=== PATIENT | female | born 1980 | race Hispanic/Latino ===

== ENCOUNTER 2018-03-28 07:50 | Emergency (ER) | payer BC, SELFPAY ==
--- NOTE | 2018-03-28 11:12 | RAD REPORT ---
EXAM DESCRIPTION: RAD - Chest Pa And Lat (2 Views) - 03/28/2018 10:32 am CLINICAL HISTORY: Cough, shortness of breath, difficulty swallowing COMPARISON: None. TECHNIQUE: PA and lateral views of the chest were obtained. FINDINGS: The lungs are clear. Heart size is normal and central vasculature is within normal limit s. No pleural effusion or pneumothorax seen. No acute bony finding noted. No aortic abnormality. IMPRESSION: No acute cardiopulmonary process.
--- NOTE | 2018-03-28 11:15 | RAD REPORT ---
EXAM DESCRIPTION: RAD - Neck Soft Tissue - 03/28/2018 10:32 am CLINICAL HISTORY: Cough, choking, difficulty swallowing COMPARISON: None. TECHNIQUE: AP and lateral views of the neck were obtained. FINDINGS: No prevertebral soft tissue thickening. No foreign body or abnormal air density. Epiglot tis is normal. Tonsillar and adenoid tissue within normal limits as well. There is straightening of the usual cervical lordosis. C5-6 disc space narrowing with endplate spurring present. No facet join t abnormality. IMPRESSION: C5-6 disc and endplate degenerative change. No suspicious soft tissue finding.
[2018-03-28 12:16] LABS: BUN Blood Urea Nitrogen 11 mg/dL (7-18); Bicarbonate 25 mmol/L (21-32); Creatine Phosphokinase 63 U/L (26-192); Glucose Level 89 mg/dL (74-106); Potassium 3.9 mmol/L (3.5-5.1); Sodium Level 141 mmol/L (136-145); Troponin I < 0.02 ng/mL (0.0-0.045)
[2018-03-28 12:33] LABS: Absolute Lymphocytes (CBC) 1.1 K/uL (0.7-4.9); Absolute Monocytes 0.4 K/uL (0.1-1.3); Absolute Neutrophil 6.2 K/uL (1.8-8.0); Basophils % 0.3 % (0-1.3); Eosinophils % 1.8 % (0-4.4); Hematocrit 36.6 % (36.0-45.0); Lymphocytes % 14.4 % (15.3-44.8); MCH 30.7 pg (27.0-35.0); MCV 90.2 fL (80-100); MPV 11.4 fL (7.6-11.3); Monocytes % 5.2 % (3.3-12.3); RBC Red Blood Cell Count 4.06 M/uL (3.86-4.86)
[2018-03-28 12:59] LABS: Urine Blood NEGATIVE (NEG); Urine Glucose NEGATIVE (NEG); Urine Protein NEGATIVE (NEG)
--- NOTE | 2018-03-29 00:59 | EDPHYS ---
Physician Documentation [facility] Name: Nicole Segura Age: 37 yrs Sex: Female : 1980 Arrival Date: 03/28/2018 Time: 09:18 Bed 7 Private MD: ED Physician John Vang RESIDENT DIRECTOR: 03/28 09:29 LMP 03/08/2018 ch Historical: - Allergies: 09:29 No Known Allergies; ch - Home Meds: : None [Active]; ch - PMHx: : None; ch - PSHx: :29 Tubal ligation; ch - Immunization history:: Adult Immunizations up to date, Pneumococcal vaccine is not up to date, Flu vaccine is not up to date. - Social history:: Smoking status: Patient/guardian denies using tobacco, Patient/guardian denies using alcohol, street drugs. - Ebola Screening: : Patient negative for fever greater than or equal to 101.5 degrees Fahrenheit, and additional compatible Ebola Virus Disease symptoms Patient denies exposure to infectious person Patient denies travel to an Ebola-affected area in the 21 days before illness onset No symptoms or risks identified at this time. Vital Signs: 09:29 BP 103 / 76; Pulse 70; Resp 16; Temp 98.3; Pulse Ox 99% on R/A; Pain 0/10; ch 11:57 BP 98 / 65; Pulse 68; Resp 18; Temp 98.3; Pulse Ox 99% on R/A; Pain 0/10; ch MDM: 09:20 Patient medically screened. cp Administered Medications: No medications were administered Disposition: 03/28/18 11:57 Discharged to Home. Impression: Dysphagia, unspecified - Resolved. - Condition is Stable. - Discharge Instructions: Dysphagia. - Medication Reconciliation Form, Thank You Letter, Antibiotic Education, Prescription Opioid Use, Work release form form. - Follow up: Ginna Kamara MD; When: 1 - 2 days; Reason: Recheck today's complaints. - Problem is new. - Symptoms are resolved. Signatures: Khalida Verdugo RN RN ch John Vasquez PA PA cp Corrections: (The following items were deleted from the chart) 12:08 11:57 03/28/2018 11:57 Discharged to Home. Impression: Dysphagia, unspecified - ch Resolved. Condition is Stable. Forms are Medication Reconciliation Form, Thank You Letter, Antibiotic Education, Prescription Opioid Use. Follow up: Ginna Kamara; When: 1 - 2 days; Reason: Recheck today's complaints. Problem is new. Symptoms are resolved. cp
--- NOTE | 2018-03-29 00:59 | ER ---
Nurse's Notes [facility] Name: Nicole Segura Age: 37 yrs Sex: Female : 1980 Arrival Date: 03/28/2018 Time: 09:18 Bed 7 Private MD: Diagnosis: Dysphagia, unspecified-Resolved Presentation: 03/28 09:26 Presenting complaint: Patient states: Mcdonough like I was choking, couldn't move air in or ch out, happened twice this morning so I called EMS. I felt like there was mucous stuck in my throat. happened at 0730, and then again at 0740. Drinking water helps. See Down time charting for triage info, beginning computer charting now. Transition of care: patient was not received from another setting of care. Onset of symptoms was March 28, 2018 at 07:00. Risk Assessment: Do you want to hurt yourself or someone else? Patient reports no desire to harm self or others. Initial Sepsis Screen: Does the patient meet any 2 criteria? No. Patient's initial sepsis screen is negative. Does the patient have a suspected source of infection? No. Patient's initial sepsis screen is negative. Care prior to arrival: IV initiated. 20 GA, in the right antecubital area, Glucose check: 86. 09:26 Method Of Arrival: EMS: [facility] 09:26 Acuity: ZE 3 ch Triage Assessment: :29 General: Appears in no apparent distress. comfortable, Behavior is calm, cooperative, ch appropriate for age. Pain: Denies pain. Neuro: No deficits noted. Cardiovascular: No deficits noted. Respiratory: No deficits noted. Respiratory: Airway is patent Respiratory effort is even, unlabored. 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 - Social history:: Smoking status: Patient/guardian denies using tobacco, Patient/guardian denies using alcohol, street drugs. - Ebola Screening: : Patient negative for fever greater than or equal to 101.5 degrees Fahrenheit, and additional compatible Ebola Virus Disease symptoms Patient denies exposure to infectious person Patient denies travel to an Ebola-affected area in the 21 days before illness onset No symptoms or risks identified at this time. Screenin:57 Abuse screen: Denies threats or abuse. Denies injuries from another. Nutritional screening: No deficits noted. Tuberculosis screening: No symptoms or risk factors identified. Fall Risk None identified. Assessment: 11:00 Reassessment: Patient appears in no apparent distress at this time. No changes from previously documented assessment. Patient and/or family updated on plan of care and expected duration. Pain level reassessed. Patient is alert, oriented x 3, equal unlabored respirations, skin warm/dry/pink. 11:57 Reassessment: Patient appears in no apparent distress at this time. Patient and/or family updated on plan of care and expected duration. Pain level reassessed. Patient is alert, oriented x 3, equal unlabored respirations, skin warm/dry/pink. Patient denies pain at this time. Patient states feeling better. Patient states symptoms have improved. Vital Signs: 09:29 BP 103 / 76; Pulse 70; Resp 16; Temp 98.3; Pulse Ox 99% on R/A; Pain 0/10; ch 11:57 BP 98 / 65; Pulse 68; Resp 18; Temp 98.3; Pulse Ox 99% on R/A; Pain 0/10; ch ED Course: 09:15 Urine collected: clean catch specimen, clear, kasia colored. jb1 09:18 Patient arrived in ED. ch 09:20 John Vasquze PA is PHCP. cp 09:20 John Vang MD is Attending Physician. cp 09:26 Khalida Verdugo, REYNA is Primary Nurse. ch 09:28 Triage completed. ch 09:29 Arm band placed on left wrist. Patient placed in an exam room, on a stretcher, on manager cardiac, on pulse oximetry. 10:06 EKG done, by oscillograph technician. reviewed by John Vang MD. at1 11:55 Ginna Kamara MD is Referral Physician. cp 11:57 No apparent distress. Resting quietly. ch 11:57 Patient has correct armband on for positive identification. Placed in gown. Bed in low position. Call light in reach. Side rails up X 1. Adult w/ patient. oil pit attendant on. Pulse ox on. NIBP on. 11:57 No provider procedures requiring assistance completed. IV discontinued, intact, ch bleeding controlled, No redness/swelling at site. Pressure dressing applied. Administered Medications: No medications were administered Outcome: :57 Discharge ordered by MD. cp 11:57 Discharged to home ambulatory, with family. 11:57 Condition: stable 11:57 Discharge instructions given to patient, family, Instructed on discharge instructions, follow up and referral plans. medication usage, Demonstrated understanding of instructions, follow-up care. 12:08 Patient left the ED. Signatures: Wali Bynum jb1 Khalida Verdugo RN RN Nallely Gusman, wicker worker EKG Tat1 John Vasquez PA PA cp Corrections: (The following items were deleted from the chart) 09:46 09:46 Urine collected: clean catch specimen, clear, kasia colored, jb1 jb1
--- NOTE | 2018-03-29 12:14 | EKG ---
Test Date: 2018-03-28 Test Time: 09:01:26 Pipe Bender: HINA MEASUREMENT RESULTS: Intervals: Rate: 60 CT: 150 QRSD: 80 QT: 398 QTc: 398 [place]: P: 58 CT: 150 QRS: 42 T: 53 INTERPRETIVE STATEMENTS: Normal sinus rhythm Normal ECG No previous ECG available for comparison Electronically Signed On 03-29-18 12:08:06 CDT by Gonzalez Parmar
== END 2018-03-28 12:08 | disposition home or self-care (01) ==
LOC: ER 07:50
DX: R13.10 Dysphagia, unspecified (principal)
CPT/HCPCS: 36415; 70360; 71046; 80048; 81003; 81025; 82550; 83735; 84484; 85025; 87070; 87081; 93005; 99284

== ENCOUNTER 2025-05-12 02:31 | Emergency (ER) | payer BC, OTHER ==
[2025-05-12] MEDS ORDERED: MORPHINE 2 MG/ML SYR ONE (03:14)
[2025-05-12] MEDS ORDERED: NA CHLORIDE 0.9% 1,000 ML ONE (03:14)
[2025-05-12] MEDS ORDERED: ONDANSETRON 4 MG/2 ML VIAL ONE (03:14)
[2025-05-12 03:43] LABS: ALT/SGPT 16.0 U/L (13-56); AST/SGOT 12.0 U/L (15-37); Albumin 3.3 g/dL (3.4-5.0); Albumin/Globulin Ratio 0.9 (1.1-1.8); Alkaline Phosphatase 76.0 U/L (45-117); Anion Gap 8.6 mEq/L (5.0-15.0); BUN Blood Urea Nitrogen 8.0 mg/dL (7-18); Globulin 3.7 g/dL (2.3-3.5); Glucose Level 94.0 mg/dL (74-106); Lipase 25.0 U/L (13-75); Potassium 3.6 mEq/L (3.5-5.1)
[2025-05-12 03:51] LABS: Urine Microscopic Reflex YN NO UMIC
[2025-05-12 03:52] LABS: Absolute Lymphocytes (CBC) 1.9 K/uL (0.7-4.9); Hematocrit 37.1 % (36.0-45.0); Hemoglobin 12.2 g/dL (12.0-15.0); MCH 28.7 pg (27.0-35.0); MCHC 32.8 g/dL (32.0-36.0); MCV 87.3 fL (80-100); MPV 10.6 fL (7.6-11.3); Nucleated RBC Absolute Count 0.0 (0-0); Nucleated Red Blood Cells % 0.0 % (0-0); RBC Red Blood Cell Count 4.25 M/uL (3.86-4.86); White Blood Count 7.30 thou/uL (4.3-10.9)
[2025-05-12] MEDS ORDERED: KETOROLAC 30 MG/ML INJ ONE (03:58)
--- NOTE | 2025-05-12 06:07 | RAD REPORT ---
EXAM: CT Abdomen and Pelvis With Intravenous Contrast CLINICAL HISTORY: The patient is 44 years old and is Female; Abdominal pain. TECHNIQUE: Axial computed tomography images of the abdomen and pelvis with intravenous contrast. Sagittal and coronal reformatted images were created and reviewed. This CT exam was performed using one or more of the following dose reduction techniques: automated exposure control, adjustmen t of the mA and/or kV according to patient size, and/or use of iterative reconstruction technique. COMPARISON: No relevant prior studies available. FINDINGS: Lung bases: Unremarkable. No mass. No consolidation. Pleural space: Minimal right pleural fluid. ABDOMEN: Liver: Fatty liver. Gallbladder and bile ducts: Unremarkable. No calcified stones. No ductal dilation. Pancreas: No findings to suggest acute pancreatitis. No mass visualized. No ductal dilation. Spleen: Unremarkable. No splenomegaly. Adrenals: Unremarkable. No mass. Kidneys and ureters: Punctate right nephrolithiasis. The kidneys are otherwise unremarkable. No hydronephrosis. Stomach and bowel: No bowel dilatation or obstruction. No bowel wall thickening. PELVIS: Appendix: The visualized appendix is normal. No pericecal inflammation to suggest acute appendici tis. Bladder: Bladder is not well distended. Reproductive: Uterine cervix appears enlarged and heterogeneous with underlying nabothian cysts. An underlying cervical mass cannot be excluded, although this may be a volume averaging artifact. 4.2 cm left ovarian cyst. Small left ovarian follicles. Right ovary is unremarkable. ABDOMEN and PELVIS: Intraperitoneal space: Unremarkable. No free air. No significant fluid collection. Bones/joints: No acute fracture. No dislocation. Soft tissues: Incompletely visualized bilateral breast implants. Vasculature: Unremarkable. No abdominal aortic aneurysm. Lymph nodes: No pathologically enlarged lymph nodes. IMPRESSION: 1. Uterine cervix appears enlarged and heterogeneous with underlying nabothian cysts. An underlying cervical mass cannot be excluded, although this may be a volume averaging artifact. Pelvic ultrasound and SECURITY ASSISTANT follow-up recommended. 2. Left ovarian simple-appearing cyst measuring 4.2 cm. No follow-up imaging is recommended. Refere nce: JACR 2019;17(2):248-254 3. Normal appendix. 4. Mild fatty liver. 5. Incompletely visualized bilateral breast implants. 6. Additional non-emergent findings as above. Electronically signed by: Ginna Hernandez MD 05/12/2025 04:56 AM CDT RP V2 Due to temporary technical issues with the PACS/Mobile Card reporting system, reports are being petrona d by the in-house radiologist without review as a courtesy to ensure prompt reporting the interpreting radiologist is fully responsible for the content of the report. Transcribed Date/Time: 05/12/2025 6:06 AM
--- NOTE | 2025-05-12 06:16 | EDPHYS ---
Physician Documentation [facility] Name: Nicole Segura Age: 44 yrs Sex: Female : 1980 Arrival Date: 05/12/2025 Time: 02:31 Bed 16 Private MD: ED Physician Grant Tran HPI: 05/12 03:09 This 44 yrs old Female presents to ER via Ambulatory with complaints of Neck sp4 and Upper Back Pain, Flank Pain. 23:45 44-year-old female presents with acute onset of neck pain upper back pain and flank sp4 pain. Patient reports pain is mostly situated in the right upper abdominal area with radiation into the upper back and flank. No history of prior abdominal surgery. Historical: - Allergies: :57 No Known Allergies; km10 - Home Meds: 02:57 Adderall XR Oral [Active]; km10 - PMHx: 02:57 ADHD; km10 - Immunization history:: Adult Immunizations up to date. - Infectious Disease History:: Denies. - Social history:: Smoking status: Patient denies any tobacco usage or history of. - Family history:: not pertinent. ROS: 23:45 Constitutional: Negative for fever, chills, and weight loss, positive for right upper sp4 quadrant abdominal pain and upper back pain also right flank pain 23:45 All other systems are negative, Exam: 23:45 Constitutional: This is a well developed, well nourished patient who is awake, alert, sp4 and in no acute distress. Head/Face: Normocephalic, atraumatic. Eyes: Pupils equal round and reactive to light, extra-ocular motions intact. Lids and lashes normal. Conjunctiva and sclera are not injected. Cornea within normal limits. Periorbital areas with no swelling, redness, or edema. ENT: Nares patent. No nasal discharge, no septal abnormalities noted. Tympanic membranes are normal and external auditory canals are clear. Oropharynx with no redness, swelling, or masses, exudates, or evidence of obstruction, uvula midline. Mucous membranes moist. Neck: Trachea midline, no thyromegaly or masses palpated, and no cervical lymphadenopathy. Supple, full range of motion without nuchal rigidity, or vertebral point tenderness. Chest/axilla: Normal chest wall appearance and motion. Nontender with no deformity. No lesions are appreciated. Cardiovascular: Regular rate and rhythm with a normal S1 and S2. No gallops, murmurs, or rubs. No pulse deficits. Respiratory: Lungs have equal breath sounds bilaterally, clear to auscultation and percussion. No rales, rhonchi or wheezes noted. No increased work of breathing, no retractions or nasal flaring. Abdomen/GI: Soft, with normal bowel sounds. No distension or tympany. No guarding or rebound. No evidence of tenderness throughout. Back: No spinal tenderness. No costovertebral tenderness. Skin: Warm, dry with normal turgor. Normal color with no rashes, no lesions, and no evidence of cellulitis. MS/ Extremity: Pulses equal, no cyanosis. Neurovascular intact. Full, normal range of motion. Neuro: Awake and alert, GCS 15, oriented to person, place, time, and situation. Cranial nerves II-XII grossly intact. Motor strength 5/5 in all extremities. Sensory grossly intact. Psych: Awake, alert, with orientation to person, place and time. Behavior, mood, and affect are within normal limits Vital Signs: 02:55 BP 126 / 84; Pulse 84; Resp 16; Temp 98.4(O); Pulse Ox 100% on R/A; Weight 63.5 kg (R); km10 Height 5 ft. 1 in. (R); 05:43 BP 121 / 79; Pulse 68; Resp 14; Pulse Ox 98% on R/A; km10 02:55 Body Mass Index 26.45 (63.50 kg, 154.94 cm) km10 Finley Coma Score: 05:43 Eye Response: spontaneous(4). Verbal Response: oriented(5). Motor Response: obeys km10 commands(6). Total: 15. 23:45 Eye Response: spontaneous(4). Verbal Response: oriented(5). Motor Response: obeys sp4 commands(6). Total: 15. MDM: 02:45 Medical Screening Exam initiated sp4 06:22 ED course: FINDINGS: Lung bases: Unremarkable. No mass. No consolidation. Pleural sp4 space: Minimal right pleural fluid. ABDOMEN: Liver: Fatty liver. Gallbladder and bile ducts: Unremarkable. No calcified stones. No ductal dilation. Pancreas: No findings to suggest acute pancreatitis. No mass visualized. No ductal dilation. Spleen: Unremarkable. No splenomegaly. Adrenals: Unremarkable. No mass. Kidneys and ureters: Punctate right nephrolithiasis. The kidneys are otherwise unremarkable. No hydronephrosis. Stomach and bowel: No bowel dilatation or obstruction. No bowel wall thickening. PELVIS: Appendix: The visualized appendix is normal. No pericecal inflammation to suggest acute appendicitis. Bladder: Bladder is not well distended. RADIOLOGY SERVICES REPORT (Continued) Name: NICOLE SEGURAILLO CC: NICOLE SEGURA / Report: [id number] Radiology Services Report Page 2 of 2 Reproductive: Uterine cervix appears enlarged and heterogeneous with underlying nabothian cysts. An underlying cervical mass cannot be excluded, although this may be a volume averaging artifact. 4.2 cm left ovarian cyst. Small left ovarian follicles. Right ovary is unremarkable. ABDOMEN and PELVIS: Intraperitoneal space: Unremarkable. No free air. No significant fluid collection. Bones/joints: No acute fracture. No dislocation. Soft tissues: Incompletely visualized bilateral breast implants. Vasculature: Unremarkable. No abdominal aortic aneurysm. Lymph nodes: No pathologically enlarged lymph nodes. IMPRESSION: 1. Uterine cervix appears enlarged and heterogeneous with underlying nabothian cysts. An underlying cervical mass cannot be excluded, although this may be a volume averaging artifact. Pelvic ultrasound and BURGLAR ALARM INSTALLER follow-up recommended. 2. Left ovarian simple-appearing cyst measuring 4.2 cm. No follow-up imaging is recommended. 3. Normal appendix. 4. Mild fatty liver. 5. Incompletely visualized bilateral breast implants. 6. Additional non-emergent findings as above. Electronically signed by: Ginna Hernandez MD . 23:47 Differential diagnosis: arthritis, Degenerative Disc Disease Acute gallbladder sp4 infection, biliary colic. Pancreatitis, hepatitis. Data reviewed: vital signs, nurses notes, lab test result(s), radiologic studies, CT scan. Consideration of Admission/Observation Escalation of care including admission/observation considered. ED course: Incidental finding on a CAT scan made of cervical enlargement and heterogenous appearance with underlying cysts. Patient advised that there may be underlying cervical mass. Patient advised to visit her RETAIL DEPARTMENT RESET in 2 to 4 weeks for pelvic examination and cervical biopsy. Otherwise stable for discharge home.. 05/12 02:47 Order name: UA Rfx Sheng Cult if indicated; Complete Time: 06:02 sp4 05/12 02:47 Order name: Test, Urine; Complete Time: 06:02 sp4 10/29 02:47 Order name: CBC with Diff; Complete Time: 06:02 sp4 05/12 02:47 Order name: CMP; Complete Time: 06:02 sp4 05/12 02:47 Order name: Lipase; Complete Time: 06:02 sp4 05/12 02:54 Order name: CT Abd/Pelvis - IV Contrast Only sp4 05/12 02:47 Order name: IV Saline Lock; Complete Time: 03:10 sp4 05/12 02:47 Order name: Labs collected and sent; Complete Time: 03:10 sp4 Administered Medications: 03:34 Drug: Ondansetron IVP 4 mg IVP once; over 2 minutes Route: IVP; Site: left antecubital; km10 04:24 Follow up: Response: No adverse reaction 10 03:34 Drug: morphine IVP or IV 2 mg IVP once over 4 mins Route: IVP; Infused Over: 4 mins; km10 Site: left antecubital; 04:24 Follow up: Response: No adverse reaction [facility] 03:34 Drug: NS 0.9% IV 1000 ml IV at 1 bolus Per protocol; to be given as a bolus over 60 km10 minutes Route: IV; Rate: 1 bolus; Site: left antecubital; 04:56 Follow up: Response: No adverse reaction; IV Status: Completed infusion 10 04:23 Drug: Ketorolac IVP 30 mg IVP once Route: IVP; Site: left antecubital; km10 04:56 Follow up: Response: No adverse reaction [facility] Disposition: 23:49 Chart complete. sp4 Disposition Summary: 05/12/25 06:16 Discharge Ordered Problem: new sp4 Symptoms: have improved sp4 Condition: Stable sp4 Diagnosis - Acute right upper quadrant abdominal pain, enlarged heterogenous cervix, left sp4 ovarian cyst Followup: sp4 - With: Private Physician - When: 7 - 10 days - Reason: Recheck today's complaints Discharge Instructions: - Discharge Summary Sheet sp4 - Abdominal Pain, Adult, [id number] sp4 Forms: - Patient Portal Instructions sp4 Prescriptions: - meloxicam 15 mg Oral tablet - take 1 tablet ORAL route daily PRN pain; 30 tablet; Refills: 0, Product sp4 Selection Permitted - dicyclomine 20 mg Oral tablet - take 1 tablet ORAL route 3 times per day PRN abdominal pain; 30 tablet; sp4 Refills: 0, Product Selection Permitted - ondansetron 8 mg Oral Tablet,disintegrating - take 1 tablet ORAL route every 8 hours PRN nausea; 30 tablet; Refills: 0, sp4 Product Selection Permitted Signatures: Dispatcher [employer] EDMS Grant Tran MD MD sp4 Janet Terry RN RN km10 Corrections: (The following items were deleted from the chart) 02:47 02:47 UA Rfx Sheng Cult if indicated+U.LAB.BRZ ordered. EDMS EDMS 02:47 02:47 Test, Urine+UC.LAB.BRZ ordered. EDMS EDMS 02:47 02:47 CBC+H.LAB.BRZ ordered. EDMS EDMS 02:47 02:47 COMPREHENSIVE METABOLIC PANEL+C.LAB.BRZ ordered. EDMS EDMS 02:47 02:47 LIPASE+C.LAB.BRZ ordered. EDMS EDMS
--- NOTE | 2025-05-12 06:16 | ER ---
Nurse's Notes [facility] Name: Nicole Segura Age: 44 yrs Sex: Female : 1980 Arrival Date: 05/12/2025 Time: 02:31 Bed 16 Private MD: Diagnosis: Acute right upper quadrant abdominal pain, enlarged heterogenous cervix, left ovarian cyst Presentation: 05/12 02:55 Chief complaint: Patient states: right upper quadrant abdominal pain, radiates to right km10 neck, right upper back x 5 days. Coronavirus screen: Vaccine status: Patient reports receiving the 1st dose of the Covid vaccine. At this time, the client does not indicate any symptoms associated with coronavirus-19. Ebola Screen: No symptoms or risks identified at this time. Initial Sepsis Screen: Does the patient meet any 2 criteria? No. Patient's initial sepsis screen is negative. Does the patient have a suspected source of infection? No. Patient's initial sepsis screen is negative. Risk Assessment: Do you want to hurt yourself or someone else? Patient reports no desire to harm self or others. Onset of symptoms was May 06, 2025. 02:55 Method Of Arrival: Ambulatory km10 02:55 Acuity: ZE 3 km10 Triage Assessment: 02:58 General: Appears in no apparent distress. Behavior is cooperative, appropriate for age. km10 Pain: Complains of pain in right upper quadrant Pain radiates to neck and right upper back Pain currently is 2 out of 10 on a pain scale. Pain began 5 days ago Is intermittent, Alleviated by repositioning, sitting upright Aggravated by lying flat Also complains of nausea, sleeplessness. Neuro: Level of Consciousness is awake, alert, Oriented to person, place, time, situation, Appropriate for age Gait is steady. Respiratory: Airway is patent Respiratory effort is even, unlabored. GI: Reports upper abdominal pain, nausea. Historical: - Allergies: 02:57 No Known Allergies; km10 - Home Meds: 02:57 Adderall XR Oral [Active]; km10 - PMHx: 02:57 ADHD; km10 - Immunization history:: Adult Immunizations up to date. - Infectious Disease History:: Denies. - Social history:: Smoking status: Patient denies any tobacco usage or history of. - Family history:: not pertinent. Screenin:00 [facility] ED Fall Risk Assessment (Adult) History of falling in the last 3 months, km10 including since admission No falls in past 3 months (0 pts) Confusion or Disorientation No (0 pts) Intoxicated or Sedated No (0 pts) Impaired Gait No (0 pts) Mobility Assist Device Used No (0 pt) Altered Elimination No (0 pt) Score/Fall Risk Level 0 - 2 = Low Risk Oriented to surroundings, Maintained a safe environment, Educated pt \T\ family on fall prevention, incl call for assistance when getting out of bed, Assessed \T\ reinforced patient's understanding of fall precautions. Abuse screen: Denies threats or abuse. Denies injuries from another. Nutritional screening: No deficits noted. Tuberculosis screening: No symptoms or risk factors identified. Assessment: 03:00 Reassessment: see triage. Neuro: Level of Consciousness is awake, alert, obeys km10 commands, Oriented to person, place, time, situation, Appropriate for age. 05:43 Reassessment: Patient appears in no apparent distress at this time. Patient and/or km10 family updated on plan of care and expected duration. Pain level reassessed. Patient is alert, oriented x 3, equal unlabored respirations, skin warm/dry/pink. 06:43 Reassessment: Patient appears in no apparent distress at this time. Patient and/or km10 family updated on plan of care and expected duration. Pain level reassessed. Patient is alert, oriented x 3, equal unlabored respirations, skin warm/dry/pink. Vital Signs: 02:55 BP 126 / 84; Pulse 84; Resp 16; Temp 98.4(O); Pulse Ox 100% on R/A; Weight 63.5 kg (R); km10 Height 5 ft. 1 in. (R); 05:43 BP 121 / 79; Pulse 68; Resp 14; Pulse Ox 98% on R/A; km10 02:55 Body Mass Index 26.45 (63.50 kg, 154.94 cm) km10 [place] Coma Score: 05:43 Eye Response: spontaneous(4). Verbal Response: oriented(5). Motor Response: obeys km10 commands(6). Total: 15. 23:45 Eye Response: spontaneous(4). Verbal Response: oriented(5). Motor Response: obeys sp4 commands(6). Total: 15. ED Course: 02:35 Patient arrived in ED. gm2 02:41 Janet Terry, RN is Primary Nurse. km10 02:44 Grant Tran MD is Attending Physician. sp4 02:56 Triage completed. km10 03:00 Arm band placed on right wrist. km10 03:01 Patient has correct armband on for positive identification. Bed in low position. Call km10 light in reach. Provided Education on: plan of care. 03:10 CBC with Diff Sent. km10 03:10 Lipase Sent. km10 03:10 CMP Sent. km10 03:10 UA Rfx Sheng Cult if indicated Sent. km10 03:10 Test, Urine Sent. km10 04:34 CT Abd/Pelvis - IV Contrast Only In Process Unspecified. EDMS 06:43 No provider procedures requiring assistance completed. IV discontinued, intact, km10 bleeding controlled, No redness/swelling at site. Pressure dressing applied. Administered Medications: 03:34 Drug: Ondansetron IVP 4 mg IVP once; over 2 minutes Route: IVP; Site: left antecubital; km10 04:24 Follow up: Response: No adverse reaction km10 03:34 Drug: morphine IVP or IV 2 mg IVP once over 4 mins Route: IVP; Infused Over: 4 mins; km10 Site: left antecubital; 04:24 Follow up: Response: No adverse reaction km10 03:34 Drug: NS 0.9% IV 1000 ml IV at 1 bolus Per protocol; to be given as a bolus over 60 km10 minutes Route: IV; Rate: 1 bolus; Site: left antecubital; 04:56 Follow up: Response: No adverse reaction; IV Status: Completed infusion km10 04:23 Drug: Ketorolac IVP 30 mg IVP once Route: IVP; Site: left antecubital; km10 04:56 Follow up: Response: No adverse reaction km10 Medication: 06:44 VIS not applicable for this client. km10 Outcome: 06:16 Discharge ordered by . sp4 06:43 Discharged to home ambulatory, km10 06:43 Condition: stable 06:43 Discharge instructions given to patient, Instructed on discharge instructions, follow up and referral plans. medication usage, Demonstrated understanding of instructions, follow-up care, medications, Prescriptions given X 3, 07:02 Patient left the ED. km10 Signatures: Dispatcher [employer] Grant Yee MD MD sp4 Funmilayo De Luna gm2 Janet Terry RN RN km10
[2025-05-12 08:30] VITALS: TEMP 98.4
[2025-05-12 08:31] VITALS: BP 121/79; O2SAT 98
== END 2025-05-12 07:02 | disposition home or self-care (01) ==
LOC: ER 02:31
DX: R10.11 Right upper quadrant pain (principal); N88.4 Hypertrophic elongation of cervix uteri; N83.202 Unspecified ovarian cyst, left side
CPT/HCPCS: 96361; 85025; 36415; 81025; 81003; 83690; 80053; 74177; 96375; 96374; 99284; Q9967; J1885; J2270; J2405; J7030